=== PATIENT | male | born 1980 | race Caucasian/White ===

== ENCOUNTER 2017-06-13 11:19 | Emergency (ER) | payer SELFPAY ==
[~2017-06-13] VITALS: Ht 157.5 cm; Wt 62.0 kg
[2017-06-13 11:40] VITALS: BP 136/91
== END 2017-06-13 18:49 | disposition left against medical advice (07) ==
LOC: ER 12:00
DX: M79.662 Pain in left lower leg (principal); Z53.21 Procedure and treatment not carried out due to patient leaving prior to being seen by health care provider